=== PATIENT | female | born 1970 | race Two or more races ===

== ENCOUNTER 2019-01-22 19:52 | Emergency (ER) | payer OTHER ==
[~2019-01-22] VITALS: Ht 157.5 cm; Wt 74.8 kg
[2019-01-22 20:15] VITALS: BP 158/88
--- NOTE | 2019-01-22 20:15 | NUR ---
ED Nurse Note: Mg walked into ED c/o 02/22 sore throat that has been an on going issue for the past 6 days accompanied by headaches, patient does admit to smoking cigarretes, patient presents with no fever. patient is alert and oriented x4, ambulatory with a steady gait, VSS
--- NOTE | 2019-01-22 20:40 | Emergency Room Report ---
History of Present Illness General Chief Complaint: Sore Throat Source: Patient Present Illness HPI 48-year-old female presents to the emergency department complaining of 10 out of 10 severity sore throat with chills x6 days. Patient reports she also has fullness in the ears and nasal congestion. Patient states pain is exacerbated upon attempts to swallow. Patient denies specifically measuring a fever. Patient denies ill contacts or recent travel. Up-to-date with vaccinations except for this years flu vaccination. Denies cough. 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 denies photophobia or neck stiffness. Allergies: Coded Allergies: No Known Allergies (Unverified , 01/22/19) Patient History Past Medical History: see triage record Past Surgical History: none Pertinent Family History: none Last Menstrual Period: 01/14/19 Now: No Reviewed Nursing Documentation: PMH: Agreed; PSxH: Agreed Nursing Documentation-PMH Past Medical History: No Stated History Review of Systems All Other Systems: negative except mentioned in HPI Physical Exam Vital Signs Date Time Temp Pulse Resp B/P (MAP) Pulse Ox O2 Delivery O2 Flow Rate FiO2 01/22/19 20:12 98.6 85 18 164/103 (123) 96 Room Air Sp02 EP Interpretation: reviewed, normal General Appearance: no apparent distress, alert, GCS 15, non-toxic Head: normocephalic, atraumatic Eyes: bilateral eye normal inspection, bilateral eye PERRL ENT: hearing grossly normal, normal voice, TMs + canals normal, uvula midline, nasal congestion, tonsillar swelling, pharyngeal erythema Neck: full range of motion, no meningismus, no bony tend Respiratory: chest non-tender, lungs clear, normal breath sounds, no respiratory distress, no accessory muscle use, no wheezing, speaking full sentences Cardiovascular #1: regular rate, rhythm Musculoskeletal: back normal, gait/station normal, normal range of motion, non- tender Neurologic: alert, oriented x3, responsive, motor strength/tone normal, sensory intact, speech normal, grossly normal Psychiatric: judgement/insight normal Lymphatic: no adenopathy Medical Decision Making PA Attestation Dr. Roca is my supervising Physician whom patient management has been discussed with. Diagnostic Impression: Primary Impression: Pharyngitis, acute Qualified Codes: J02.0 - Streptococcal pharyngitis ER Course 48-year-old female presents to the emergency department complaining of 10 out of 10 severity sore throat with chills x6 days. Patient reports she also has fullness in the ears and nasal congestion. Patient states pain is exacerbated upon attempts to swallow. Patient denies specifically measuring a fever. Patient denies ill contacts or recent travel. Up-to-date with vaccinations except for this years flu vaccination. Denies cough. 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 denies photophobia or neck stiffness. Ddx considered but are not limited to: pharyngitis, strep, [employer], ludwigs angina, URI Vital signs: are WNL, pt. is afebrile H&PE are most consistent with: pharyngitis presumed strep. ORDERS: None required at this time as the diagnosis is clinical ED INTERVENTIONS: Lidocaine Viscous PO. DISCHARGE: At this time pt. is stable for d/c to home. Will provide printed patient care instructions, and any necessary prescriptions. Care plan and follow up instructions have been discussed with the patient prior to discharge. Last Vital Signs Date Time Temp Pulse Resp B/P (MAP) Pulse Ox O2 Delivery O2 Flow Rate FiO2 01/22/19 20:12 98.6 85 18 164/103 (123) 96 Room Air Disposition: HOME, SELF-CARE Condition: Stable Scripts Acetaminophen* (TYLENOL EXTRA STRENGTH*) 500 Mg Tablet 500 MG ORAL Q6H PRN for Mild Pain/Temp > 100.5, #20 TAB 0 Refills Prov: Michelle Mina 01/22/19 Lidocaine HCl 2% Viscous (Lidocaine HCl 2% Viscous) 100 Ml Solution 15 ML ORAL QID for throat pain, #220 ML Prov: Michelle Mina 01/22/19 Amoxicillin/Potassium Clav 875-125* (AUGMENTIN 875-125 TABLET*) 1 Each Tablet 1 TAB ORAL TWICE A DAY for 10 Days, #20 TAB Prov: Michelle Mina 01/22/19 Referrals: [facility] Departure Forms: Return to Work Return to Work Date: Jan 24, 2019 Return to Full Activity: Jan 24, 2019 Patient Instructions: Sore Throat, Strep Throat Additional Instructions: Take medications as directed. Follow up with a Primary Care Provider in 3-5 days, even if your symptoms have resolved. --Please review list of primary care clinics, if you do not already have a primary care provider Return sooner to ED if new symptoms occur, or current symptoms become worse. - Please note that this Emergency Department Report was dictated using [employer] technology software, occasionally this can lead to erroneous entry secondary to interpretation by the dictation equipment. Michelle Mina Jan 22, 2019 20:40
[2019-01-22] MEDS ORDERED: LIDOCAINE VISC100 ML ORAL (20:41)
[2019-01-22] MEDS ORDERED: TYLENOL EXTRA500 MG ORAL (20:41)
[2019-01-22] MEDS ORDERED: AUGMENTIN 875-1 EAC1 ORAL (20:41)
[2019-01-22] MEDS ORDERED: Lidocaine 2% Visc 15ml soln ORAL ONE (20:45)
[2019-01-22 20:55] VITALS: BP 148/73
--- NOTE | 2019-01-22 20:55 | NUR ---
ER DISCHARGE NOTE: Patient is cleared to be discharged per ERMD, pt is aox4, on room air, with stable vital signs. pt was given dc and prescription instructions, pt was able to verbalize understanding, pt id band removed without complications. pt is able to ambulate with steady gait. pt took all belongings.
== END 2019-01-22 20:55 | disposition home or self-care (01) ==
LOC: EMR 20:51
DX: J02.0 Streptococcal pharyngitis (principal)
CPT/HCPCS: 99282